=== PATIENT | male | born 1965 | race Hispanic/Latino ===

== ENCOUNTER → 2022-04-02 | Outpatient (CLI) | payer OTHER ==
[2022-04-02 12:20] LABS: CREATININE 1.2 mg/dL (0.5-1.5); POTASSIUM 4.5 mmol/L (3.5-5.1)
== END | disposition home or self-care (01) ==
LOC: LAB 09:11
PROVIDERS: ATTEND Internal Medicine Cardiovascular Disease
DX: I50.22 Chronic systolic (congestive) heart failure (principal); R06.00 Dyspnea, unspecified
CPT/HCPCS: 36415; 80048; 83880

== ENCOUNTER → 2022-05-07 | Outpatient (CLI) | payer OTHER ==
[2022-05-07 12:56] LABS: ALBUMIN 3.3 g/dL (3.5-5.0); CREATININE 1.2 mg/dL (0.5-1.5)
[2022-05-07 13:14] LABS: POTASSIUM 4.7 mmol/L (3.5-5.1)
== END | disposition home or self-care (01) ==
LOC: LAB 11:45
PROVIDERS: ATTEND Internal Medicine Cardiovascular Disease
DX: I11.0 Hypertensive heart disease with heart failure (principal); I50.22 Chronic systolic (congestive) heart failure; E78.5 Hyperlipidemia, unspecified
CPT/HCPCS: 36415; 80053; 80061

== ENCOUNTER → 2023-03-04 | Outpatient (CLI) | payer OTHER ==
[2023-03-04 12:20] LABS: ALBUMIN 3.4 g/dL (3.5-5.0); BILIRUBIN,TOTAL 0.6 mg/dL (0.2-1.0); CREATININE 1.1 mg/dL (0.5-1.5); POTASSIUM 4.2 mmol/L (3.5-5.1); TOTAL PROTEIN, SERUM 8.2 g/dL (6.0-8.3)
== END | disposition home or self-care (01) ==
LOC: LAB 09:59
PROVIDERS: ATTEND Internal Medicine Cardiovascular Disease
DX: I11.0 Hypertensive heart disease with heart failure (principal); I50.21 Acute systolic (congestive) heart failure; E78.5 Hyperlipidemia, unspecified
CPT/HCPCS: 36415; 80053; 80061

== ENCOUNTER → 2024-01-08 | Outpatient (CLI) | payer OTHER ==
[2024-01-08 12:10] LABS: BASOPHILS # (AUTO) 0.07 K/uL (0.00-0.20); BASOPHILS % (AUTO) 0.7 % (0.0-5.0); EOSINOPHILS # (AUTO) 0.31 K/uL (0.00-0.70); EOSINOPHILS % (AUTO) 2.9 % (0.0-8.0); IMMATURE GRANULOCYTE ABSOLUTE 0.03 K/uL (0-1); LYMPHOCYTES # (AUTO) 2.4 K/uL (1.0-4.8); LYMPHOCYTES % (AUTO) 22.2 % (21.0-51.0); MEAN CORPUSCULAR HEMOGLOBIN 26.7 pg (27.0-33.0); MEAN CORPUSCULAR HGB CONC 31.3 g/dL (32.0-36.0); MEAN CORPUSCULAR VOLUME 85.3 fL (79-99); MONOCYTES # (AUTO) 0.7 K/uL (0.1-1.0); MONOCYTES % (AUTO) 6.8 % (3.0-13.0); NEUTROPHILS # (AUTO) 7.2 K/uL (1.8-7.7); NEUTROPHILS % (AUTO) 67.1 % (40.0-77.0); PLATELET COUNT (AUTO) 199 K/uL (130-400); RED BLOOD CELL COUNT(AUTO) 5.39 MIL/uL (4.50-6.20); RED CELL DISTRIBUTION WIDTH 14.5 % (11.0-15.5); WHITE BLOOD COUNT (AUTO) 10.7 K/uL (4.8-10.8)
[2024-01-08 12:27] LABS: ALBUMIN 3.3 g/dL (3.5-5.0); BILIRUBIN,TOTAL 1.1 mg/dL (0.2-1.0); CREATININE 1.2 mg/dL (0.5-1.3); POTASSIUM 3.8 mmol/L (3.5-5.1)
[2024-01-08 12:42] LABS: B-TYPE NATRIURETIC PEPTIDE 312 pg/mL (0-100)
== END | disposition home or self-care (01) ==
LOC: LAB 08:55
PROVIDERS: ATTEND Internal Medicine Cardiovascular Disease
DX: I11.0 Hypertensive heart disease with heart failure (principal); I50.42 Chronic combined systolic (congestive) and diastolic (congestive) heart failure; R53.83 Other fatigue
CPT/HCPCS: 36415; 80053; 80061; 83880; 85025

== ENCOUNTER → 2024-08-04 | Outpatient (CLI) | payer OTHER ==
[2024-08-04 12:34] LABS: ALBUMIN 3.4 g/dL (3.5-5.0); CREATININE 1.1 mg/dL (0.5-1.3); MAGNESIUM 1.8 mg/dL (1.80-2.40); POTASSIUM 3.8 mmol/L (3.5-5.1); TOTAL PROTEIN, SERUM 8.4 g/dL (6.0-8.3)
== END | disposition home or self-care (01) ==
LOC: LAB 09:46
PROVIDERS: ATTEND Internal Medicine Cardiovascular Disease
DX: I10 Essential (primary) hypertension (principal); E78.5 Hyperlipidemia, unspecified
CPT/HCPCS: 36415; 80053; 80061; 83735

== ENCOUNTER 2025-01-13 07:51 | Day surgery (SDC) | payer OTHER ==
[2025-01-11 08:15] LABS: IMMATURE GRANULOCYTE ABSOLUTE 0.03 K/uL (0-1); NUCLEATED RED BLOOD CELLS 0.0 % (0.0-0.19); PLATELET COUNT (AUTO) 213 K/uL (130-400); RED BLOOD CELL COUNT(AUTO) 5.50 MIL/uL (4.50-6.20); RED CELL DISTRIBUTION WIDTH 13.3 % (11.0-15.5); WHITE BLOOD COUNT (AUTO) 10.2 K/uL (4.8-10.8)
--- NOTE | 2025-01-11 08:24 | EKG ---
[facility] Test Date: 2025-01-11 Test Time: 08:03:42 Pat Name: ANGELICA CAIN Department: [facility] Room: [facility] Gender: M [employer]paround Facilitator: [id number] : 1965 Requested By: MAURICIO REYES Order Number: [id number] Reading MD: Mauricio Reyes Measurements Intervals [place] Rate: 66 P: 44 WI: 194 QRS: -20 QRSD: 104 T: 130 QT: 432 QTc: 454 Interpretive Statements Sinus rhythm Probable anterior infarct, old Abnormal T, consider ischemia, lateral leads No previous ECG available for comparison Electronically Signed On 01-17-2025 10:17:24 CDT by Mauricio Reyes Please click the below link to view image of tracing.
[2025-01-11 08:26] LABS: CREATININE 1.2 mg/dL (0.5-1.3); GLOMERULAR FILTR. RATE CALC 69.0 mL/min (>90); GLUCOSE,RANDOM 243.0 mg/dL (70-105); INR 1.03 (0.85-1.15); SODIUM SERUM 134.0 mmol/L (136-145); UREA NITROGEN, BLOOD 9.0 mg/dL (7-18)
[2025-01-11 09:03] VITALS: BP 140/82; PULSE 65; RESP 17; TEMP 97.7
[~2025-01-13] VITALS: Ht 172.7 cm; Wt 95.3 kg
[~2025-01-13 07:51] MED LIST: APIX5TAB PO; EZET10TA48 PO; FURO20TA4 PO; METO-409 PO; ROSU20TA98 PO; SACU1TAB PO
[2025-01-13 08:10] VITALS: BP 146/83; PULSE 74; RESP 16; TEMP 97.2
[2025-01-13] MEDS ORDERED: MIDAZOLAM HCL 1 MG/ML 2ML VIAL IVP ONE (08:30)
[2025-01-13] MEDS: MIDAZOLAM HCL 1 MG/ML 2ML VIAL IVP ONE ×2 (10:01)
[2025-01-13] MEDS: LIDOCAINE HCL 2% VISCOUS 15 ML UDCUP PO ONE (10:02)
[2025-01-13] MEDS: 0.9%NACL 1000ML 1,000 ML IV SCH (10:02)
[2025-01-13 10:10] VITALS: BP 146/83; PULSE 65; RESP 16
[2025-01-13 10:25] VITALS: BP 115/75; PULSE 66; RESP 16
[2025-01-13 10:40] VITALS: BP 117/46; PULSE 68; RESP 16
[2025-01-13 10:55] VITALS: BP 118/78; PULSE 74; RESP 14
[2025-01-13 11:05] VITALS: BP 124/74; PULSE 76; RESP 14; TEMP 97.6
--- NOTE | 2025-01-14 12:17 | HMCSR ---
APPROVED REPORT EXAM: Transesophageal echocardiogram with color flow Doppler. INDICATION ICD: I51.3 Reason For Test : Rule out Intracardiac Thrombus. PROCEDURE After obtaining informed consent, patient underwent transesophageal echo in the Day Patient Room 15. 15 mL 2% Viscous Lidocaine was given as a topical anesthetic prior to the administration of the consc ious sedation. Type of Sedation: Conscious Sedation Sedation was administered by Abelino Hinkle RN. Sedation was achieved with refer to chart intravenously. Transesophageal probe was inserted and advanced into esophagus without difficulty by Dr. Andi Munoz. Echo enhancement indication: R/O Septal defect. Echo enhancement agent administered: Agitated Saline. PETER was performed and images were obtained, probe was removed without complications. Throughout the procedure, the blood pressure, pulse oximetry, cardiac rhythm, and rate were monitored . The patient tolerated the procedure without adverse effects. Recovery from conscious sedation was une ventful and vital signs were stable. Left Ventricle Left ventricular cavity size is normal. There is global hypokinesis of the left ventricle. There is n ormal left ventricular wall thickness. LVEF is 20-25%. No left ventricular thrombus noted. Not assess ed. Right Ventricle The right ventricle is normal size. Right ventricle is hypertrophied. Systolic function appears reduc ed. There is no thrombus suspected in the right ventricle. Atria The left atrium size is normal. No thrombus is visualized in the left atrium or left atrial appendage . Negative bubble study. No evidence of PFO/ASD by agitated saline. The right atrium size is normal. Aortic Valve The aortic valve is calcified with restricted excursion of the noncoronary cusp. Trace aortic regurgi tation. There is no aortic valvular stenosis. Mitral Valve Mitral valve leaflets open well. Mitral regurgitation is mild. There is no mitral valve stenosis. Tricuspid Valve The tricuspid valve is normal in structure and function. There is no tricuspid valve regurgitation no carli. Pulmonic Valve The pulmonary valve is normal in structure and function. There is no pulmonic valvular regurgitation. Great Vessels The aortic root is normal in size. The ascending aorta is normal in size. The IVC was not visualized. Pericardium No pericardial effusion. Conclusion Technically difficult study. Left ventricular cavity size is normal. LVEF is 20-25% with global hypokinesis and akinetic anteroapi martinez francois. Right ventricle appears mildly hypertrophied, dilated , and with a reduced systolic function by visua l assessment. Both atria appear mildly dilated. Normal Bubble study and no evidence or intracardiac thrombi observe d. No hemodynamically significant valvular abnormalities. No pericardial effusion.
== END 2025-01-13 11:10 | disposition home or self-care (01) ==
LOC: DAH 07:51
PROVIDERS: ATTEND Student in an Organized Health Care Education/Training Program
DX: I51.3 Intracardiac thrombosis, not elsewhere classified (principal); I34.0 Nonrheumatic mitral (valve) insufficiency; I25.2 Old myocardial infarction; I50.42 Chronic combined systolic (congestive) and diastolic (congestive) heart failure; Z95.1 Presence of aortocoronary bypass graft; I25.810 Atherosclerosis of coronary artery bypass graft(s) without angina pectoris; Z79.01 Long term (current) use of anticoagulants; Z79.82 Long term (current) use of aspirin; Z79.899 Other long term (current) drug therapy
CPT/HCPCS: 80048; 85025; 85610; 85730; 36415; 93005; 93312; 99152; 93325; J3010; J7030; J2250 ×2; A4615; A4215; A4657; A4222; A4221; A4663; A4216; A4606; A4223 ×3; 99153; G0500